=== PATIENT | female | born 1975 | race Caucasian/White ===

== ENCOUNTER 2022-01-09 10:23 | Outpatient (CLI) | payer BC | END 2022-01-09 10:24 | disposition home or self-care (01) | LOC: CSHLAB 10:23 | PROVIDERS: ATTEND Student in an Organized Health Care Education/Training Program | DX: Z01.812 Encounter for preprocedural laboratory examination (principal); Z20.822 Contact with and (suspected) exposure to COVID-19; N92.0 Excessive and frequent menstruation with regular cycle; Z40.03 Encounter for prophylactic removal of fallopian tube(s); Z80.41 Family history of malignant neoplasm of ovary | CPT/HCPCS: 80048; 84703; 85027; 86850; 86900; 86901; 87811 ==

== ENCOUNTER 2022-01-12 09:58 | Day surgery (SDC) | payer BC ==
[2022-01-09 12:33] LABS: Hemoglobin 14.3 g/dL (12.0-15.5); Mean Corpuscular HGB CONC 32.9 g/dL (32.0-36.0); Mean Corpuscular Hemoglobin 27.8 pg (27.0-33.0); Mean Corpuscular Volume 84.5 fl (81.6-98.3); Mean Platelet Volume 10.1 fl (7.4-10.4); Platelet Count 352 10x3/uL (150-450); RBC Distribution Width 13.3 % (11.5-14.5); Red Blood Cell (RBC) Count 5.15 10x6/uL (3.90-5.03); White Blood Cell (WBC) Count 6.8 10x3/uL (3.5-10.5)
[2022-01-09 12:46] LABS: Anion Gap 13 mmol/L (10-20); BUN (Urea Nitrogen) 8 mg/dL (7.0-18.7); Calc. Creatinine Clearance 0 mL/min (70-130); Calcium 9.5 mg/dL (7.8-10.44); Carbon Dioxide 24 mmol/L (22-29); Chloride 107 mmol/L (98-107); Estimated GFR 97; Glucose 93 mg/dL (70-105); Potassium 3.9 mmol/L (3.5-5.1); Sodium 140 mmol/L (136-145)
[2022-01-09 12:50] LABS: BHCG - Serum Negative (NEGATIVE); Pregs Control Background? CLEAR/WHITE (CLR/WHITE); Pregs Control Bar Appear? YES (CONTROL BAR)
[2022-01-11 09:32] VITALS: BMI 41.1
[2022-01-12] MEDS ORDERED: Lidocaine 1% MPF 2 ML VIAL ONE (10:19)
[2022-01-12] MEDS ORDERED: Gabapentin 300 MG CAP ONE (10:19)
[2022-01-12] MEDS ORDERED: CeleCOXIB 100 MG CAP ONE (10:19)
[2022-01-12] MEDS ORDERED: Famotidine/PF 20 mg/2ml Vial ONE (10:20)
[2022-01-12] MEDS ORDERED: Bupivacaine HCl 0.5%/Epinephrine 1:200,000/PF 30 ml Vial ONE (10:42)
[2022-01-12] MEDS ORDERED: Scopolamine 1.5 mg/72 hour Patch ONE (11:07)
[2022-01-12] MEDS ORDERED: Midazolam HCl 2 mg/2 ml Vial ONE (11:07)
[2022-01-12] MEDS ORDERED: CEFAZOLIN 2 GM VIAL ONE (11:56)
[2022-01-12] MEDS ORDERED: Rocuronium Bromide 10 MG/ML (10ML VIAL) ONE (12:17)
[2022-01-12] MEDS ORDERED: Fentanyl 250 MCG/5 ML VIAL ONE (12:17)
[2022-01-12] MEDS ORDERED: PROPOFOL 20 ML ONE (12:17)
[2022-01-12] MEDS ORDERED: Dexamethasone 4 mg/ml Vial ONE (12:17)
[2022-01-12] MEDS ORDERED: Lidocaine 1% PF 5 ML VIAL ONE (12:17)
[2022-01-12] MEDS ORDERED: Ondansetron PF 4 MG/2 ML Vial ONE (12:17)
[2022-01-12] MEDS ORDERED: Glycopyrrolate 0.2 MG/ML 5 ML SYRINGE ONE (13:15)
[2022-01-12] MEDS ORDERED: SUGAMMADEX SODIUM 200 MG/2 ML VIAL ONE (13:41)
== END 2022-01-12 15:40 | disposition home or self-care (01) ==
LOC: CSHSDC 09:58
PROVIDERS: ATTEND Student in an Organized Health Care Education/Training Program
PROC: 0UDB8ZZ Extraction of Endometrium, Via Natural or Artificial Opening Endoscopic (ICD-10-PCS; principal; 2022-01-12)
PROC: 0U5B8ZZ Destruction of Endometrium, Via Natural or Artificial Opening Endoscopic (ICD-10-PCS; principal; 2022-01-12)
PROC: 0UT74ZZ Resection of Bilateral Fallopian Tubes, Percutaneous Endoscopic Approach (ICD-10-PCS; principal; 2022-01-12)
DX: N85.2 Hypertrophy of uterus (principal); R93.89 Abnormal findings on diagnostic imaging of other specified body structures; N92.0 Excessive and frequent menstruation with regular cycle; K66.0 Peritoneal adhesions (postprocedural) (postinfection); Z15.01 Genetic susceptibility to malignant neoplasm of breast; I10 Essential (primary) hypertension; E03.9 Hypothyroidism, unspecified; E28.2 Polycystic ovarian syndrome; F32.A Depression, unspecified; Z80.3 Family history of malignant neoplasm of breast; Z79.84 Long term (current) use of oral hypoglycemic drugs; Z79.899 Other long term (current) drug therapy; Z20.822 Contact with and (suspected) exposure to COVID-19; Z90.49 Acquired absence of other specified parts of digestive tract
CPT/HCPCS: 36415; 80048; 84703; 85027; 86850; 86900; 86901; 87811; 88302; 88305; 93005; 93010; J0690; J1100; J2250; J2405; J2704; J3010; S0028